=== PATIENT | female | born 1965 | race Caucasian/White ===

== ENCOUNTER 2018-06-20 13:38 | Inpatient (IN) | payer SELFPAY ==
[~2018-06-20] VITALS: Ht 152.4 cm; Wt 65.8 kg
[2018-06-20] MEDS ORDERED: LEVALBUTEROL HCL SOLN NEBU 1.25 MG/3 ML NEB INH ONE (14:00)
[2018-06-20] MEDS ORDERED: IPRATROPIUM BROMIDE 0.02% 2.5 ML NEB NEB STA (14:00)
[2018-06-20] MEDS ORDERED: LORAZEPAM 0.5 MG TAB PO ONE (14:30)
--- NOTE | 2018-06-20 14:34 | NUR ---
Rt called at this time for breathing treatment.
[2018-06-20 14:52] LABS: BASOPHILS % 0.3 % (0.0-1.0); EOSINOPHILS # (AUTO) 0.2 (0.0-0.4); EOSINOPHILS % 6.5 % (0.0-6.0); LYMPHOCYTES # (AUTO) 1.1 (1.0-3.2); LYMPHOCYTES % 37.1 % (18.0-39.1); MEAN CORPUSCULAR HEMOGLOBIN 17.3 pg (28-32); MEAN CORPUSCULAR HGB CONC 25.3 g/dL (31-35); MEAN CORPUSCULAR VOLUME 68.2 fL (81-99); MONOCYTES # (AUTO) 0.2 (0.2-0.8); MONOCYTES % 8.2 % (4.4-11.3); NEUTROPHILS # (AUTO) 1.4 (2.1-6.9); NEUTROPHILS % 47.6 % (38.7-80.0); PLATELET COUNT 324 x10e3/uL (140-360); RED BLOOD COUNT 3.36 x10e6/uL (3.6-5.1); RED CELL DISTRIBUTION WIDTH 22.1 % (11.7-14.4)
[2018-06-20 15:01] LABS: HEMATOCRIT 22.9 % (34.2-44.1); HEMOGLOBIN 5.8 g/dL (12.0-16.0)
--- NOTE | 2018-06-20 15:01 | NUR ---
MARY CARMEN FROM LAB CALLED TO REPORT H&H .8.9. INFORMED DR. ALMAGUER AND APOORVA CERRATO OF THIS CRITICAL VALUE WELL STEVIE LOPEZ PT'S PRIMARY NURSE.
[2018-06-20 15:10] LABS: BILIRUBIN,URINE NEGATIVE (NEGATIVE); CLARITY,URINE CLEAR (CLEAR); COLOR,URINE YELLOW (YELLOW); KETONES,URINE NEGATIVE (NEGATIVE); LEUKOCYTE ESTERASE ,URINE NEGATIVE (NEGATIVE); NITRITE,URINE NEGATIVE (NEGATIVE); PROTEIN,URINE DIPSTICK NEGATIVE (NEGATIVE); URINE UROBILINOGEN 0.2 mg/dL (0.2 - 1)
[2018-06-20 15:11] LABS: ALANINE AMINOTRANSFERASE 9 IU/L (0-55); ALBUMIN/GLOBULIN RATIO 1.3 (0.8-2.0); ALKALINE PHOSPHATASE 73 IU/L (40-150); BLOOD UREA NITROGEN 14 mg/dL (7-26); BUN/CREATININE RATIO 17 (6-25); CALCIUM 8.8 mg/dL (8.4-10.2); CARBON DIOXIDE 23 mmol/L (22-29); CHLORIDE 108 mmol/L (98-107); CREATINE KINASE 76 IU/L (29-168); CREATININE, SERUM 0.84 mg/dL (0.57-1.11); EST GLOMERULAR FILTRATION RATE > 60 ML/MIN (60-); GLUCOSE 104 mg/dL (74-118); SODIUM 140 mmol/L (136-145)
[2018-06-20 15:14] LABS: HEMATOCRIT 20.8 % (34.2-44.1); HEMOGLOBIN 5.3 g/dL (12.0-16.0)
[2018-06-20] MEDS ORDERED: SODIUM CHLORIDE 0.9% 250ML 250 ML IV ONE (15:15)
[2018-06-20 15:19] LABS: BACTERIA,URINE RARE /HPF; EPITHELIAL CELLS,URINE RARE /LPF; RBC,URINE 0-5 /HPF (0-5); WBC,URINE (MAN) 0-5 /HPF (0-5)
--- NOTE | 2018-06-20 15:27 | NUR ---
ASSISTED APOORVA ROMERO WITH RECTAL EXAM. NO BLEEDING NOTED. PT TOLERATED WELL. HEMOCCULT SAMPLE COLLECTED BY APOORVA CERRATO AND SENT TO LAB ORDERED. INFORMED PRIMARY NURSE STEVIE LOPEZ OF THIS.
--- NOTE | 2018-06-20 15:33 | NUR ---
Dr. Mei at bedside.
--- NOTE | 2018-06-20 15:38 | Diagnostic Imaging Report ---
EXAMINATION: CHEST 2 VIEWS INDICATION: ^ORDER PLACED BY ^[id number] ^1500 ^Y COMPARISON: None FINDINGS: PA and lateral views TUBES and LINES: None. LUNGS: Lungs are well inflated. There is no evidence of pneumonia or pulmonary edema. PLEURA: No pleural effusion or pneumothorax. HEART AND MEDIASTINUM: The cardiomediastinal silhouette is unremarkable. BONES AND SOFT TISSUES: No acute osseous lesion. Soft tissues are unremarkable. UPPER ABDOMEN: No free air under the diaphragm. IMPRESSION: No acute thoracic abnormality. Signed by: Dr. Amrik Maldonado MD on 06/20/2018 3:35 PM
[2018-06-20 15:42] LABS: ANISOCYTOSIS SLIGHT; HYPOCHROMASIA SLIGHT; MICROCYTOSIS SLIGHT; PLATELET ESTIMATE ADEQUATE; PLATELET MORPHOLOGY COMMENT NORMAL
[2018-06-20] MEDS ORDERED: SODIUM CHLORIDE 0.9% 1000ML 1,000 ML IV STA (16:23)
[2018-06-20] MEDS ORDERED: ONDANSETRON HCL INJ 2MG/ML 2ML 2 MG/ML VIAL IV PRN (18:00)
[2018-06-20] MEDS ORDERED: SODIUM CHLORIDE FLUSH 10 ML SYR INJ PRN (18:00)
[2018-06-20] MEDS ORDERED: SODIUM CHLORIDE 0.9% 50ML 50 ML ONE ×2 (18:05)
[2018-06-20] MEDS ORDERED: IOPAMIDOL 370 MG/ML 200 ML INFUS..BTL INJ ONE (18:05)
--- NOTE | 2018-06-20 18:05 | Diagnostic Imaging Report ---
EXAM: CT Chest WITH contrast (PE Protocol) INDICATION: ^PE PROTOCOL ^[id number] ^1700 COMPARISON: Same day chest x-ray TECHNIQUE: Chest was scanned utilizing a multidetector helical scanner from the lung apex through the level of the diaphragm after administration of IV contrast. Thin section reconstructions were obtained with special concentration on the pulmonary arteries. Coronal and sagittal reformations were obtained. Dose modulation, iterative reconstruction, and/or weight based adjustment of the mA/kV was utilized to reduce the radiation dose to as low as reasonably achievable. Pulmonary embolism protocol was performed. IV CONTRAST: 100 mL of Isovue-370 COMPLICATIONS: None RADIATION DOSE: Total DLP: 509.65 mGy*cm Estimated effective dose: (DLP x 0.014 x size factor) mSv CTDIvol has been reviewed. It is below the limits set by the Radiation Protocol Committee (RPC). FINDINGS: LINES/ TUBES: None. LUNGS AND AIRWAYS: No filling defect is identified within the pulmonary arteries to the segmental level. The lungs are unremarkable. Minimal medial right middle lobe scarring with traction bronchiectasis. Airways are normal. PLEURA: The pleural spaces are clear. HEART AND MEDIASTINUM: The thyroid gland is normal. No mediastinal, hilar or axillary lymphadenopathy. The heart is normal in size.. There is no pericardial effusion. Main pulmonary artery measures 2.9 cm in diameter and the ascending aorta measures 3.6 cm. Mild atherosclerotic calcification of aorta and coronary arteries. UPPER ABDOMEN: Unremarkable. BONES: The visualized bony thorax is within normal limits. SOFT TISSUES: Unremarkable. IMPRESSION: No pulmonary emboli. Signed by: Dr. Amrik Maldonado MD on 06/20/2018 6:01 PM
--- OUTSIDE RECORDS SUMMARY | 2018-06-20 18:13 | XMS REPORT ---
Author Author [facility] Address Unknown Phone Unavailable Care Team Providers Care Butadiene Convertor Operator Name Role Phone Jazmin ALMAGUER Unavailable Unavailable Problems This patient has no known problems. Allergies, Adverse Reactions, Alerts This patient has no known allergies or adverse reactions. Medications This patient has no known medications. Results Test Description Test Time Test Comments Text Results Atomic Results Result Comments CT CHEST W 2018-06-20 17:54:00 [place] [address] Patient Name: VICKI PINEDA MR #: [id number] : 1965 Age/Sex: 52/F Req #: [id number] Adm Physician: Ordered by: MAGALIS ALMAGUER MD Report #: [id number] Location: ER Room/Bed: Procedure: [id number] CT/CT CHEST W Exam Date: 06/20/18 Exam Time: 1700 REPORT STATUS: Signed EXAM: CT Chest WITH contrast (PE Protocol) INDICATION: PE PROTOCOL [id number] COMPARISON: Same day chest x-ray TECHNIQUE: Chest was scanned utilizing a multidetector helical scanner from the lung apex through the level of the diaphragm after administration of IV contrast. Thin section reconstructions were obtained with special concentration on the pulmonary arteries. Coronal and sagittal reformations were obtained. Dose modulation, iterative reconstruction, and/or weight based adjustment of the mA/kV was utilized to reduce the radiation dose to as low as reasonably achievable. Pulmonary embolism protocol was performed. IV CONTRAST: 100 mL of Isovue-370 COMPLICATIONS: None RADIATION DOSE: Total DLP: 509.65 mGy*cm Estimated effective dose: (DLP x 0.014 x size factor) mSv CTDIvol has been reviewed. It is below the limits set by the Radiation Protocol Committee (RPC). FINDINGS: LINES/ TUBES: None. LUNGS AND AIRWAYS: No filling defect is identified within the pulm onary arteries to the segmental level. The lungs are unremarkable. Minimal medial right middle lobe scarring with traction bronchiectasis. Airways are normal. PLEURA: The pleural spaces are clear. HEART AND MEDIASTINUM: The thyroid gland is normal. No mediastinal, hilar or axillary lymphadenopathy. The heart is normal in size.. There is no pericardial effusion. Main pulmonary artery measures 2.9 cm in diameter and the ascending aorta measures 3.6 cm. Mild atherosclerotic calcification of aorta and coronary arteries. UPPER ABDOMEN: Unremarkable. BONES: The visualized bony thorax is within normal limits. SOFT TISSUES: Unremarkable. IMPRESSION: No pulmonary emboli. Signed by: Dr. Amrik Georges MD on 06/20/2018 6:01 PM Dictated By: AMRIK GEORGES MD 00 Transcribed By: ANSHU on 06/20/181800 COPY TO: MAGALIS ALMAGUER MD CHEST 2 VIEWS 2018-06-20 15:34:00 [place] [address] Patient Name: VICKI PINEDA MR #: [id number] : 1965 Age/Sex: 52/F Req #: [id number] Adm Physician: Ordered by: BLOSSOM PAUL GLOST KILN OPERATOR Report #: [id number] Location: Room/Bed: Procedure: [id number] DX/CHEST 2 VIEWS Exam Date: 06/20/18 Exam Time: 1500 REPORT STATUS: Signed EXAMINATION: CHEST 2 VIEWS INDICATION: ORDER PLACED BY [id number] 1500 Y COMPARISON: None FINDINGS: PA and lateral views TUBES and LINES: None. LUNGS: Lungs are well inflated. There is no evidence of pneumonia or pulmonary edema. PLEURA: No pleural effusion or pneumothorax. HEART AND MEDIASTINUM: The cardiomediastinal silhouette is unremarkable. BONES AND SOFT TISSUES: No acute osseous lesion. Soft tissues are unremarkable. UPPER ABDOMEN: No free air under the diaphragm. IMPRESSION: No acute thoracic abnormality. Signed by: Dr. Amrik Georges MD on 06/20/2018 3:35 PM Dictated By: AMRIK GEORGES MD 1535 Transcribed By: ANSHU on 06/20/18 1539 COPY TO: BLOSSOM PAUL NP
[2018-06-20 18:27] LABS: INR 0.87; PROTHROMBIN TIME 12.3 seconds (11.9-14.5)
[2018-06-20 18:28] LABS: PARTIAL THROMBOPLASTIN TIME 26.4 seconds (23.8-35.5)
[2018-06-20 20:00] VITALS: BP 146/70
--- NOTE | 2018-06-20 20:00 | NUR ---
Patient arrived to unit from ER by stretcher and escorted by RN. Assisted patient to room comfortable and orientated to surroundings and voiced understanding, bed at low position and locked. Call light within reach. No acute distress noted and stable condition, will continue to monitor.
[2018-06-20] MEDS: SODIUM CHLORIDE 0.9% 1000ML 1,000 ML IV SCH (20:30)
[2018-06-20 20:41] VITALS: BP 146/70
[2018-06-20] MEDS ORDERED: SODIUM CHLORIDE 0.9% 250ML 250 ML ONE (21:23)
--- NOTE | 2018-06-21 00:20 | NUR ---
No transfusion reaction sxs noted immediately prior to transfusion.
--- NOTE | 2018-06-21 03:30 | NUR ---
No transfusion reaction sxs noted post transfusion of first unit
[2018-06-21 04:00] VITALS: BP 150/85
--- NOTE | 2018-06-21 04:20 | NUR ---
No transfusion reaction sxs noted immediately prior to 2nd unit of transfusion.
[2018-06-21] MEDS: SODIUM CHLORIDE 0.9% 1000ML 1,000 ML IV SCH (07:20)
--- NOTE | 2018-06-21 07:22 | NUR ---
No transfusion reaction sxs noted post transfusion of second unit
[2018-06-21 08:01] VITALS: BP 149/67
[2018-06-21 08:30] VITALS: BP 149/67
[2018-06-21] MEDS ORDERED: SODIUM CHLORIDE 0.9% 250ML 250 ML ONE (09:24)
[2018-06-21 11:28] VITALS: BP 139/69
[2018-06-21 13:48] LABS: BASOPHILS % 0.6 % (0.0-1.0); EOSINOPHILS # (AUTO) 0.1 (0.0-0.4); HEMATOCRIT 34.9 % (34.2-44.1); HEMOGLOBIN 10.3 g/dL (12.0-16.0); LYMPHOCYTES # (AUTO) 0.8 (1.0-3.2); LYMPHOCYTES % 13.9 % (18.0-39.1); MEAN CORPUSCULAR HEMOGLOBIN 21.7 pg (28-32); MEAN CORPUSCULAR HGB CONC 29.5 g/dL (31-35); MEAN CORPUSCULAR VOLUME 73.6 fL (81-99); MONOCYTES # (AUTO) 0.3 (0.2-0.8); MONOCYTES % 5.8 % (4.4-11.3); NEUTROPHILS # (AUTO) 4.2 (2.1-6.9); NEUTROPHILS % 77.1 % (38.7-80.0); PLATELET COUNT 232 x10e3/uL (140-360); RED BLOOD COUNT 4.74 x10e6/uL (3.6-5.1); RED CELL DISTRIBUTION WIDTH 21.7 % (11.7-14.4)
[2018-06-21] MEDS ORDERED: FERROUS SULFAT325 M1 PO (14:15)
--- NOTE | 2018-06-21 20:52 | History and Physical ---
CHIEF COMPLAINT: Shortness of breath, fatigue, and weakness. HISTORY OF PRESENT ILLNESS: This is a 52-year-old female, who does not follow up with any physician, she used to see a physician at [facility], now presents to the ED with shortness of breath and fatigue, found to be very anemic with a hemoglobin of 5.3 here at the hospital. The patient denies any vaginal bleeding, no reports of any rectal bleeding, no hematochezia, no melena, no hemoptysis or hematemesis and denies any hematuria. The patient reports having low hemoglobin in the past and was following up with PCP in [facility]. She was told in the past to have iron-deficiency anemia as well. She reports to be feeling very lightheaded and short of breath when this episode occurred. This has been ongoing for the last several days. The patient had significant workup, in which CTA of the chest shows no evidence of any pulmonary embolism. Chest x-ray was also found to be negative. The patient is seen and evaluated at bedside on the Medical floor, currently doing well without complaints. The patient has received already 3 units of packed RBCs. REVIEW OF SYSTEMS: Pertinent positives: Fatigue, weakness, shortness of breath, lightheadedness, dizziness. Pertinent negatives: Denies any chest pain, palpitation, dysuria, hematuria, frequency, urgency, cough, congestion, fever, or any other complaints. The rest of the 14-point review of systems are reviewed with the patient and are negative. ALLERGIES: TO CODEINE. HOME MEDICATIONS: She takes nothing. PAST MEDICAL HISTORY: History of iron-deficiency anemia. PAST SURGICAL HISTORY: None. FAMILY HISTORY: Hypertension and diabetes. SOCIAL HISTORY: No drugs. No alcohol. Does not smoke. Good social support. PHYSICAL EXAMINATION: VITAL SIGNS: Temperature is 97.9, pulse 78, respiratory rate is 16, blood pressure 113/69, pulse ox 100% on room air. GENERAL: Not in acute distress. Alert and oriented x3. Cooperative on examination. HEENT: Head is normocephalic and atraumatic. Eyes; pupils are equal, round, and reactive to light bilaterally. Extraocular movements are intact bilaterally. Throat, no evidence of erythema or exudates in the posterior pharynx. Has poor dentition. NECK: Supple. Good range of motion. PULMONARY: Clear to auscultation bilaterally. No wheezing, no rales, no rhonchi, no crackles appreciated. CARDIOVASCULAR: Positive S1, S2. No murmurs, rubs, or gallops appreciated. ABDOMEN: Soft, nondistended, and nontender to palpation. Bowel sounds present. MUSCULOSKELETAL: Strength is 5/5 throughout. No evidence of any muscle deficits on examination. No weakness appreciated. NEUROLOGICAL: Cranial nerves II through XII grossly intact. No evidence of any neurological deficits on exam. SKIN: Intact. Warm to touch. Good cap refill. PSYCHIATRIC: Normal affect and mood. EXTREMITIES: No edema. Good range of motion throughout. LABORATORY DATA: Lab findings show white count 5.3, hemoglobin 10.3, hematocrit 33.9, and platelets of 232, but on admission her hemoglobin was 5.2 and hematocrit was 20.8. On discharge, hemoglobin 10.3, hematocrit is 35. Chemistry; sodium 140, potassium 4, chloride 108, bicarb 23, anion gap of 13, BUN is 14, creatinine is 0.84, glucose 104, calcium is 8.8. Total bilirubin is 0.2, AST 16, ALT 9, alkaline phosphatase 73. CK 76, troponins were 0.008, BNP 43. Total protein 7.2, albumin is 4. Urinalysis was negative. Stool occult was negative. MICROBIOLOGY: Urine cultures shows no growth. IMAGING STUDIES: Chest x-ray was negative. CTA of the chest shows no evidence of any pulmonary embolism. IMPRESSION: 1. Generalized weakness secondary to anemia. 2. Iron-deficiency anemia. PLAN: At this time, the patient likely has microcytic anemia due to low MCV likely due to iron-deficiency anemia. At this time, she denies any melena, hematochezia, hemoptysis, hematemesis, hematuria, vaginal bleeding, or any source of bleeding. I discussed with her that she will receive 3 units of packed RBC and on admission, her hemoglobin was 5.2, now on discharge, hemoglobin is 10.3 after 3 units of packed RBCs. Her stool occult was negative. I discussed with her PCP needing likely Hematology appointment as an outpatient and will likely need more further workup via GI as well. At this time, the patient was anxious to be being discharged, her hemoglobin is much improved, she has no symptoms, she is doing well with no other complaints. She will be discharged home. She will be discharged home also on oral iron tablets. MD ERICKA Reed/LUIS /[id number]
--- NOTE | 2018-06-22 12:44 | Discharge Summary ---
FINAL DISCHARGE DIAGNOSES: 1. Lightheadedness and dizziness secondary to anemia. 2. Iron-deficiency anemia. CONSULTANTS: None. VITAL SIGNS: Temperature is 97.9, pulse 78, respiratory rate is 16, blood pressure is 113/69, and pulse ox is 98% on room air. LABORATORY DATA: Labs show white count of 5.3, hemoglobin on admission 5.3 and now 10.3 after 3 units of blood, hematocrit was 21 and now 34.9, MCV is low at 73, and platelets of 232. Coagulations are normal; PT 12, INR 0.87. D-dimer slightly elevated, but negative CTA and PTT 26.4. Chemistry; sodium 140, potassium 4, chloride 108, bicarb 23, anion gap of 13, BUN 14, creatinine is 0.84, glucose 104, calcium is 8.8. LFTs were normal. Troponins were negative. Albumin was 4. Urinalysis was negative. Stool occult was negative. MICROBIOLOGY: Urine cultures were negative. IMAGING STUDIES: CTA of the chest found to be negative for pulmonary emboli. Chest x-ray negative. HOSPITAL COURSE: This is a 52-year-old female, who came into the ED with lightheadedness and dizziness, found to be very anemic and hemoglobin of 5.3. The patient was admitted under observation, given 3 units of packed RBCs with a discharge hemoglobin of 10.3. There was no evidence of any stool occult blood. No evidence of hematemesis, hemoptysis, hematochezia, melena, no hematuria, no vaginal bleeding. She has history of iron-deficiency anemia. She will be discharged on tablets. On discharge, her hemoglobin was 10.3. No symptoms prior to being discharged home. On the day of discharge, vital signs were stable, labs were reviewed and stable. The patient was seen and evaluated, examined thoroughly on the day of discharge, no other complaints. The patient verbalized understanding and agreed with plan of care, to follow up accordingly as an outpatient with the primary care physician in 1 week's time MEDICATIONS: See med reconciliation form. DISPOSITION: Home. CONDITION: Stable. DIET: Heart healthy. In any event of worsening symptoms, the patient is advised to come back to the ED for further evaluation. Discharge summary took greater than 35 minutes. The patient verbalized understanding to follow up with the PCP for further workup in relation to her anemia and will likely need to see a field hand and likely needs to see a GI specialist. She did verbalize understanding and agrees with plan of care. This was discussed with the patient with the nurse present during the confrontation. MD ERICKA Reed/LUIS /[id number]
== END 2018-06-21 14:35 | disposition home or self-care (01) | DRG 812 ==
LOC: ER 13:38 → ERHOLD 18:00 → MED/SURG 19:37
PROVIDERS: ADMIT Internal Medicine; ATTEND Internal Medicine
PROC: 30233N1 Transfusion of Nonautologous Red Blood Cells into Peripheral Vein, Percutaneous Approach (ICD-10-PCS; principal; 2018-06-20)
DX: D50.9 Iron deficiency anemia, unspecified (principal); R53.1 Weakness
CPT/HCPCS: 36415; 71046; 71260; 80053; 81001; 82270; 82550; 82553; 83880; 84484; 85014; 85018; 85025; 85379; 85610; 85730; 86850; 86900; 86920; 87086; 93005; 94640; 99284; J2405; J7030; J7050; P9016; Q9967

== ENCOUNTER 2018-08-04 18:45 | Emergency (ER) | payer SELFPAY ==
[~2018-08-04] VITALS: Ht 152.4 cm; Wt 65.8 kg
[~2018-08-04 18:45] MED LIST: FERROUS SULFAT325 M1 PO
[2018-08-04 19:37] LABS: BASOPHILS % 0.8 % (0.0-1.0); EOSINOPHILS # (AUTO) 0.2 (0.0-0.4); EOSINOPHILS % 3.9 % (0.0-6.0); HEMATOCRIT 32.9 % (34.2-44.1); HEMOGLOBIN 10.1 g/dL (12.0-16.0); LYMPHOCYTES # (AUTO) 1.5 (1.0-3.2); LYMPHOCYTES % 40.1 % (18.0-39.1); MEAN CORPUSCULAR HEMOGLOBIN 27.2 pg (28-32); MEAN CORPUSCULAR HGB CONC 30.7 g/dL (31-35); MEAN CORPUSCULAR VOLUME 88.4 fL (81-99); MONOCYTES # (AUTO) 0.3 (0.2-0.8); MONOCYTES % 6.5 % (4.4-11.3); NEUTROPHILS # (AUTO) 1.9 (2.1-6.9); NEUTROPHILS % 48.4 % (38.7-80.0); PLATELET COUNT 257 x10e3/uL (140-360); RED BLOOD COUNT 3.72 x10e6/uL (3.6-5.1); RED CELL DISTRIBUTION WIDTH 24.8 % (11.7-14.4)
[2018-08-04 19:52] LABS: ALBUMIN/GLOBULIN RATIO 1.3 (0.8-2.0); CALCIUM 9.1 mg/dL (8.4-10.2); CREATININE, SERUM 1.08 mg/dL (0.57-1.11)
[2018-08-04 20:12] LABS: CLARITY,URINE CLEAR (CLEAR); COLOR,URINE YELLOW (YELLOW); LEUKOCYTE ESTERASE ,URINE NEGATIVE (NEGATIVE)
[2018-08-04 20:13] LABS: BILIRUBIN,URINE NEGATIVE (NEGATIVE); KETONES,URINE NEGATIVE (NEGATIVE); NITRITE,URINE NEGATIVE (NEGATIVE); PROTEIN,URINE DIPSTICK NEGATIVE (NEGATIVE); URINE UROBILINOGEN 0.2 mg/dL (0.2 - 1)
[2018-08-04 20:22] LABS: AMPHETAMINES SCREEN,URINE NEGATIVE (NEGATIVE); BENZODIAZEPINES SCREEN,URINE POSITIVE (NEGATIVE); PHENCYCLIDINE SCREEN,URINE NEGATIVE (NEGATIVE)
[2018-08-04 20:23] LABS: EPITHELIAL CELLS,URINE RARE /LPF
[2018-08-04 21:03] VITALS: BP 111/81
== END 2018-08-04 21:13 | disposition home or self-care (01) ==
LOC: ER 18:45
DX: R30.0 Dysuria (principal); D64.9 Anemia, unspecified; F41.9 Anxiety disorder, unspecified; Z87.440 Personal history of urinary (tract) infections; M79.18 Myalgia, other site; Z88.5 Allergy status to narcotic agent; Z82.49 Family history of ischemic heart disease and other diseases of the circulatory system; F12.20 Cannabis dependence, uncomplicated
CPT/HCPCS: 36415; 80053; 80307; 81001; 85025; 87086; 99283

== ENCOUNTER 2021-04-07 15:11 | Emergency (ER) | payer SELFPAY ==
[~2021-04-07] VITALS: Ht 152.4 cm; Wt 65.8 kg
[2021-04-07] MEDS ORDERED: TETANUS/DIPHTHERIA TOX ADULT 0.5 ML SYR IM ONE (15:45)
== END 2021-04-07 17:33 | disposition home or self-care (01) ==
LOC: ER 15:15
DX: S81.811A Laceration without foreign body, right lower leg, initial encounter (principal); W45.8XXA Other foreign body or object entering through skin, initial encounter; D64.9 Anemia, unspecified; F31.9 Bipolar disorder, unspecified; Z23 Encounter for immunization; Z88.6 Allergy status to analgesic agent; Z87.440 Personal history of urinary (tract) infections
CPT/HCPCS: 90471; 90714; 99283